=== PATIENT | male | born 1990 | race Caucasian/White ===

== ENCOUNTER 2017-02-02 19:16 | Emergency (ER) | payer MEDICAID ==
[~2017-02-02 19:16] MED LIST: ACETAMINOPHEN/H1 TA6 PO; COL100 PO; PRI20 PO; ZOF4 PO
[2017-02-02 20:56] LABS: BASOPHIL % 0.4 % (0-2); PLATELET COUNT 159 x10^3mcL (130-400); RED CELL DISTRIBUTION WIDTH 12.9 % (11.5-14.5)
[2017-02-02 21:02] LABS: microscopic required? YES; urine erythrocyte TRACE (NEGATIVE)
[2017-02-02 21:05] LABS: CALCIUM 8.4 mg/dL (8.5-10.1); CARBON DIOXIDE 28.3 mmol/L (21-32); CHLORIDE SERUM 103 mmol/L (98-107); CREATININE SERUM 0.8 mg/dL (0.7-1.3); GFR1 > 60 mL/min; GLUCOSE SERUM 105 mg/dL (74-106); POTASSIUM SERUM 3.8 mmol/L (3.5-5.1); SODIUM SERUM 139 mmol/L (136-145)
[2017-02-02 21:10] LABS: ALBUMIN 3.7 g/dL (3.4-5.0); ALKALINE PHOSPHATASE 78 U/L (46-116); ALT/SGPT 26 U/L (16-63); AMYLASE 37 U/L (25-115); AST/SGOT 19 U/L (15-37); BILIRUBIN TOTAL 0.79 mg/dL (0.20-1.00); LIPASE 133 IU/L (73-393); TOTAL PROTEIN, SERUM 7.1 g/dL (6.4-8.2)
[2017-02-02 22:13] VITALS: BP 111/73
[2017-02-03] MEDS ORDERED: PEPCID20 MG PO (13:45)
== END 2017-02-02 22:13 | disposition home or self-care (01) ==
LOC: ED 19:16
PROVIDERS: Emergency Medicine
DX: R10.13 Epigastric pain (principal); Z87.19 Personal history of other diseases of the digestive system
CPT/HCPCS: J2270; Q0092

== ENCOUNTER 2017-02-03 11:33 | Inpatient (IN) | payer MEDICAID ==
[~2017-02-03] VITALS: Ht 170.2 cm; Wt 67.2 kg
--- NOTE | 2017-02-03 12:00 | NUR ---
DR. MELTON AT BEDSIDE FOR MSE. PT AAOX4. RESPS E/U. NO S/S OF DISTRESS NOTED. CALL LIGHT W/IN REACH. WILL CONTINUE TO MONITOR.
[2017-02-03 12:19] LABS: BASOPHIL % 0.2 % (0-2); PLATELET COUNT 181 x10^3mcL (130-400); RED CELL DISTRIBUTION WIDTH 12.6 % (11.5-14.5)
--- NOTE | 2017-02-03 12:35 | NUR ---
ULTRASOUND AT BEDSIDE.
--- NOTE | 2017-02-03 12:35 | NUR ---
MEDICATED ORDERED. PLEASE SEE EMR.
[2017-02-03 12:57] LABS: microscopic required? YES; urine erythrocyte 1+ (NEGATIVE)
--- NOTE | 2017-02-03 12:58 | NUR ---
PT RESTING ON GURNEY IN POSITION OF COMFORT. RESPS E/U. NO S/S OF DISTRESS NOTED. WILL CONTINUE TO MONITOR.
[2017-02-03 13:07] LABS: CALCIUM 9.6 mg/dL (8.5-10.1); CARBON DIOXIDE 24.9 mmol/L (21-32); CHLORIDE SERUM 102 mmol/L (98-107); CREATININE SERUM 0.8 mg/dL (0.7-1.3); GFR1 > 60 mL/min; GLUCOSE SERUM 122 mg/dL (74-106); POTASSIUM SERUM 3.7 mmol/L (3.5-5.1); SODIUM SERUM 139 mmol/L (136-145)
[2017-02-03 13:09] LABS: AMYLASE 40 U/L (25-115); LIPASE 118 IU/L (73-393)
[2017-02-03 13:13] LABS: ALBUMIN 4.5 g/dL (3.4-5.0); ALKALINE PHOSPHATASE 85 U/L (46-116); ALT/SGPT 31 U/L (16-63); AST/SGOT 24 U/L (15-37); BILIRUBIN TOTAL 1.34 mg/dL (0.20-1.00); MAGNESIUM 1.9 mg/dL (1.8-2.4)
[2017-02-03 13:14] LABS: TOTAL PROTEIN, SERUM 8.4 g/dL (6.4-8.2)
[2017-02-03] MEDS ORDERED: PEPCID20 MG PO (13:45)
--- NOTE | 2017-02-03 14:02 | NUR ---
PT IN CT SCAN
--- NOTE | 2017-02-03 14:20 | NUR ---
MEDICATED ORDERED. PLEASE SEE EMR.
--- NOTE | 2017-02-03 14:34 | NUR ---
REPORT GIVEN TO BRIANA MIRZA FOR CONTINUATION OF CARE PRIMARY RN.
--- NOTE | 2017-02-03 14:45 | NUR ---
PT TRANSFERED VIA WHEELCHAIR ACCOMPANIED BY NURSE. VSS. RESPS E/U. NO S/S OF DISTRESS NOTED.
--- NOTE | 2017-02-03 15:00 | NUR ---
RECEIVED PT FROM ER VIA GURNEY. ABLE TO AMBULATE TO BED 203A. MADE COMFORTABLE. ORIENT TO ROOM AND CALL SYSTEM. AWAKE AND ALERT. TELE #36 SINUS RHYTHM. RESP 18 EVEN. BREATH SOUNDS CLEAR. NO COUGH OR SOB. ABD SOFT, BOWEL TONES PRESENT. C/O MID EPIGASTRIC DISCOMFORT 01/25. STATES "BETTER SINCE GETTING THE MEDICINE IN THE ER." INSTRUCTED WITH NPO STATUS. IV SITE PATENT. IVF STARTED AT 80CC/HR. SIDE RAILS UP X2. CALL LIGHT IN REACH.
[2017-02-03 15:32] LABS: AMPHETAMINE QUAL UR NONE DETECTED (NEG <=1000)
[2017-02-03 15:44] VITALS: BP 117/70
--- NOTE | 2017-02-03 15:47 | NUR ---
RECEIVED PT FROM ED VIA [place]. ORIENTED PT TO ROOM AND SURROUNDINGS. IV NOTED TO LAC PATENT AND INTACT. TELE 5 PLACED ON PT READING NSR. INSTRUCTED PT ON THE USE OF CALL LIGHT FOR ASSISTANCE. ENDORSED PT TO PRIMARY NURSE MINA
[2017-02-03 16:32] LABS: FREE T4 1.27 ng/dL (0.76-1.46); FREE THYROXINE INDEX 4.2 ug/dL (1.4-4.5); T4(THYROXINE) 12.1 ug/dL (4.7-13.3)
[2017-02-03 16:39] LABS: T3 TOTAL 1.28 ng/mL
[2017-02-03 17:58] VITALS: BP 101/55
--- NOTE | 2017-02-03 18:40 | NUR ---
PT C/O ABD DISCOMFORT 01/25. ABLE TO EAT SMALL PORTION OF BRAT DIET. MED WITH NORCO ORDERED. IVF CONTINUE PATENT 100CC/HR. SCD IN PLACE. ORDER TO STRAIN ALL URINE. SUPPLIES IN BATHROOM. AND PT INSTRUCTED.
--- NOTE | 2017-02-03 19:20 | NUR ---
PT REPORTS "PAIN PILL STARTING TO HELP." REPORT AT BEDSIDE. AT BEDSIDE. CALL LIGHT IN REACH.
[2017-02-03 19:45] VITALS: BP 112/58
--- NOTE | 2017-02-03 20:35 | NUR ---
PT AAOx4, LAYING IN BED WITH AT BEDSIDE. BREATHING SOUNDS ARE CLEAR AND UNLABORED, PT DENIES SOB. TELE #5, NSR, PT DENIES CHEST PAIN AT THIS TIME. PT REPORTS LAST BM 02/03/17, DIARRHEA X1. BOWEL SOUNDS ACTIVE IN x4 QUAD. ABD SOFT AND NON TENDER. IVF INFUSING WELL TO THE LEFT AC, NS AT 100 ML/HR. PULSES PALPABLE, NO EDEMA NOTED. SKIN IS INTACT. SCDs IN PLACE, SIDE RAILS UP x2, CALL LIGHT WITHIN REACH.
--- NOTE | 2017-02-04 01:15 | NUR ---
PT SLEPT WELL, BUT WAS EASILY AROUSABLE. NO RESPIRATORY DISTRESS NOTED, NO COMPLAINTS OF PAIN AT THIS TIME. WILL CONTINUE TO MONITOR.
[2017-02-04 05:26] VITALS: BP 110/66
--- NOTE | 2017-02-04 05:44 | NUR ---
PT COMPLAINED OF ABD PAIN, 02/25. NORCO ADMINISTERED.
--- NOTE | 2017-02-04 06:17 | NUR ---
PT SLEPT WELL THROUGHOUT THE NIGHT, BUT EASILY AROUSABLE. PT EXPERIENCED SOME ABD PAIN, ADMINISTERED NORCO TO ALLEVIATE PAIN-11/25. IVF INFUSING TO THE LEFT AC, NS AT 50 ML/HR. BED IN LOWEST SETTING, SIDE RAILS UP X2, CALL LIGHT WITHIN REACH.
--- NOTE | 2017-02-04 06:35 | NUR ---
REMOVED TELE MONITOR PER MD'S ORDERS. RETURNED TELE #5 TO TELE MONITOR STATION.
[2017-02-04 06:42] LABS: CALCIUM 8.2 mg/dL (8.5-10.1); CHLORIDE SERUM 109 mmol/L (98-107); CREATININE SERUM 0.6 mg/dL (0.7-1.3); GFR1 > 60 mL/min; GLUCOSE SERUM 91 mg/dL (74-106); POTASSIUM SERUM 3.7 mmol/L (3.5-5.1); SODIUM SERUM 142 mmol/L (136-145)
--- NOTE | 2017-02-04 07:55 | NUR ---
PT AWAKE AND ALERT. TEMP 98.5. MED SURG PT. RESP 18 EVEN. BREATH SOUNDS CLEAR. PULSE OX 97% RA. ABD SOFT, BOWEL TONES PRESENT. C/O MILD STOMACH DISCOMFORT MID EPIGASTRIC AREA "12/26". LAST RECEIVED NORCO AT 0540 WITH GOOD EFFECT. INSTRUCTED WITH NEED FOR STOOL SAMPLE. VOIDING QS. INSTRUCTED TO CONTINUE TO USE URINAL AND WE WILL STRAIN ALL URINE FOR STONE. VERBALIZED UNDERSTANDING. IV PATENT LAC INFUSING NORMAL SALINE 100CC/HR. SIDE RAILS UP X2. CALL LIGHT IN REACH.
[2017-02-04 08:08] LABS: BASOPHIL % 0.3 % (0-2); PLATELET COUNT 151 x10^3mcL (130-400); RED CELL DISTRIBUTION WIDTH 12.8 % (11.5-14.5)
[2017-02-04 09:29] VITALS: BP 115/62
--- NOTE | 2017-02-04 12:11 | NUR ---
PT C/O MILD ABD DISCOMFORT 01/25. MED WITH TYLENOL 650MG PO ORDERED. IV SITE PATENT. NO BM THIS AM. ENCOURAGED AMBULATION IN HALLWAY. NO C/O NAUSEA. AT BEDSIDE. KUB ORDERED FOR AM.
[2017-02-04 13:39] VITALS: BP 115/62
--- NOTE | 2017-02-04 13:40 | NUR ---
PT AMBULATED WELL IN HALLWAY. NO C/O PAIN OR NAUSEA. RETURNED TO ROOM. AT BEDSIDE. CALL LIGHT IN REACH. NO BM YET THIS SHIFT.
[2017-02-04 16:52] VITALS: BP 103/59
--- NOTE | 2017-02-04 17:30 | NUR ---
TOLERATES BRAT DIET WELL, NO C/O NAUSEA. C/O SLIGHT ABD DISCOMFORT. DENIES NEED FOR PAIN MED AT THIS TIME. IV CONTINUES PATENT LAC. CALL LIGHT IN REACH.
[2017-02-04 19:30] VITALS: BP 106/57
--- NOTE | 2017-02-04 20:40 | NUR ---
PT SITTING UP IN BED WITH AT BEDSIDE. AAOX4, MAORI AND MALTESE SPEAKING. CLEAR AND UNLABORED BREATHS ON RA, SCDs ON, PALPABLE PULSES, AND NO EDEMA NOTED. BOWEL SOUNDS AUSCULTATED ON X4 QUAD. PT REPORTS LAST BM-02/03/17. PT DENIES ANY FREQUENCY, URGENCY, BURNING ON URINATION, REPORTS YELLOW URINE. PT REPORTS BURNING ABD PAIN-2/10, BUT IS ABLE TO TOLERATE IT. SKIN IS INTACT. IVF INFUSING TO THE LEFT AC, NS AT 100 ML/HR. CALL LIGHT PLACED WITHIN REACH, EDUCATED PT TO USE CALL LIGHT IF HE EXPERIENCES PAIN, BED IN LOWEST SETTING, SIDE RAILS UP X2. WILL CONTINUE TO MONITOR.
--- NOTE | 2017-02-04 23:14 | NUR ---
PT REPORTS BURNING ABD PAIN-6/10. NORCO ADMINISTERED. REASSESSED PAIN LEVEL-0/10.
--- NOTE | 2017-02-05 05:35 | NUR ---
PT SLEPT WELL THROUGHOUT THE NIGHT, BUT EASILY AROUSABLE. NO RESPIRATORY DISTRESS NOTED, DENIES PAIN. ABD SOFT AND NONTENDER. PT HAD NO BM DURING THE SHIFT. BED IN LOWEST SETTTING, SIDE RAILS UP X2, PERSONAL BELONGINGS AND CALL LIGHT PLACED WITHIN REACH. IVF INFUSING WELL TO THE LEFT AC, NS AT 100 ML/HR. XRAY OF ABD SCHEDULED FOR THIS AM.
[2017-02-05 06:03] VITALS: BP 101/55
--- NOTE | 2017-02-05 07:45 | NUR ---
RECIVED PATIENT AAOX4, ABLE TO COMMUNICATE AND FOLLOW COMMANDS, NO DISTRESS NOTED, AND DENIES CHEST PAIN. PALPABLE PULSES TO BUE/BLE AND SCDS IN PLACE. ON ROOM AIR, DENIES SOB, AND RESPIRATIONS EVEN AND UNLABORED. DENIES N/V/D AT THIS MOMENT AND DENIES ABD PAIN. VOIDS FREELY WITH BRP AND UP WITH MININAL ASSIST. BRP WITH MINIMAL ASSITANCE. DENIES PAIN. IV TO LAC CDI AND INFUSING NS AT 100ML/HR FREELY. CALL LIGHT AND BELONGINGS WITHIN REACH, AND WILL CONTINUE TO MONITOR.
[2017-02-05] MEDS ORDERED: SIMETHICONE80 MG CH (08:03)
[2017-02-05 08:25] VITALS: BP 101/55
--- NOTE | 2017-02-05 08:32 | NUR ---
PATIENT SITTING UP IN BED AAOX4 EATING REGULAR DIET AND DENIES N/V. PATIENT TOLERATING DIET, CALL LIGHT AND BELONGINGS WITHIN REACH, AND WILL CONTINUE TO MONITOR.
[2017-02-05] MEDS ORDERED: COL250 PO (08:38)
[2017-02-05] MEDS ORDERED: NORCO1 TA2 PO ×2 (08:38→09:51)
[2017-02-05] MEDS ORDERED: REG5 PO (09:20)
[2017-02-05 10:29] VITALS: BP 111/63
--- NOTE | 2017-02-05 10:56 | NUR ---
DISCHARGE INSRUCTIONS GIVEN WITH SCRIPT, ALL QUESTIONS AND CONCERNS ADDRESSED, CALL LIGHT AND BELONGINGS WITHIN REACH, AND WILL CONTINUE TO MONITOR.
--- NOTE | 2017-02-05 11:35 | NUR ---
PATIENT DISCHARGE TO HOME AAOX4, NO DISTRSS NOTED, RESPIRATIONS EVEN AND UNLABORED, AND LEFT IN STABLE CONDITION, DENIES PAIN, IV D/C AND CANNULA INTACT. PATIENT TOOK ALL PERSONAL BELONGINGS, DISCHARGE INSTRUCTIONS, AND MEDICAL SCRIPT.
== END 2017-02-05 11:35 | disposition home or self-care (01) | DRG 247 ==
LOC: ED 11:33 → DU 13:36 → MU 14:45 → DU 15:12 → MU 02-04 06:26
PROVIDERS: Emergency Medicine; ADMIT Family Medicine
DX: K56.7 Ileus, unspecified (principal); E83.39 Other disorders of phosphorus metabolism; K52.9 Noninfective gastroenteritis and colitis, unspecified; E86.0 Dehydration; M94.0 Chondrocostal junction syndrome [Tietze]; E80.6 Other disorders of bilirubin metabolism; R31.9 Hematuria, unspecified; Z68.23 Body mass index [BMI] 23.0-23.9, adult
CPT/HCPCS: 80307; 84439; 87046; 87046-59; C9113; J2270; J2405; J3010; J7030; Q0092

== ENCOUNTER 2017-06-14 21:30 | Emergency (ER) | payer MEDICAID ==
[~2017-06-14 21:30] MED LIST changes: +COL250 PO; +NORCO1 TA2 PO; +PEPCID20 MG PO; +REG5 PO; +SIMETHICONE80 MG CH
[2017-06-14 21:58] VITALS: BP 129/84
== END 2017-06-14 21:59 | disposition home or self-care (01) ==
LOC: ED 21:30
DX: J06.9 Acute upper respiratory infection, unspecified (principal)